=== PATIENT | female | born 1945 | race Caucasian/White ===

== ENCOUNTER 2020-02-25 10:46 | Day surgery (SDC) | payer MEDICARE ==
[~2020-02-25] VITALS: Ht 149.9 cm; Wt 56.7 kg
[2020-02-25] VITALS (18 sets, daily range): BP systolic 103–149; BP diastolic 48–78
[2020-02-25] MEDS ORDERED: normal saline 1000ml 1,000 ML IV SCH (11:15)
[2020-02-25] MEDS ORDERED: CHOL200074 PO (11:50)
[2020-02-25] MEDS ORDERED: INFL100V2 IV (11:50)
[2020-02-25] MEDS ORDERED: [UNRECOGNIZED DRUG - OTHER] PO (11:50)
[2020-02-25] MEDS ORDERED: HYDR12.55 PO (11:50)
[2020-02-25] MEDS ORDERED: OMEG-79 PO (11:50)
[2020-02-25] MEDS ORDERED: ACET-1025 PO (11:50)
[2020-02-25] MEDS ORDERED: FLAX100032 PO (11:50)
[2020-02-25] MEDS ORDERED: MULT-227 PO (11:50)
[2020-02-25] MEDS ORDERED: LEVO25TA2 PO (11:50)
[2020-02-25] MEDS ORDERED: LOSA25TA96 PO (11:50)
[2020-02-25] MEDS ORDERED: CRAN450T4 PO (11:50)
[2020-02-25] MEDS ORDERED: OMEP20TA23 PO (11:50)
[2020-02-25] MEDS ORDERED: RED YEAST RICE/COQ10 PO (11:50)
[2020-02-25] MEDS ORDERED: PSYL0.4C2 PO (11:50)
[2020-02-25] MEDS ORDERED: HYDR200T84 PO (11:50)
[2020-02-25] MEDS ORDERED: CALC-522 PO (11:50)
[2020-02-25] MEDS ORDERED: AMLO10TA48 PO (11:50)
[2020-02-25] MEDS ORDERED: LACT1CAP65 PO (11:50)
[2020-02-25] MEDS ORDERED: ARA20T PO (11:50)
[2020-02-25 11:56] LABS: BASOPHILS # (AUTO) 0.1 X10'3 (0-0.2); BASOPHILS % (AUTO) 1.6 % (0-1); EOSINOPHILS # (AUTO) 0.6 X10'3 (0-0.9); EOSINOPHILS % (AUTO) 12.8 % (0-6); HEMOGLOBIN 10.6 g/dl (12.0-16.0); LYMPHOCYTES # (AUTO) 1.1 X10'3 (1.1-4.8); LYMPHOCYTES % (AUTO) 25.5 % (21-51); MEAN CORPUSCULAR HEMOGLOBIN 30.3 PG (27.0-31.0); MEAN CORPUSCULAR HGB CONC 32.3 g/dL (33.0-36.5); MEAN CORPUSCULAR VOLUME 93.6 FL (78-98); MEAN PLATELET VOLUME 6.9 FL (7.4-10.4); MONOCYTES # (AUTO) 0.4 X10'3 (0-0.9); MONOCYTES % (AUTO) 8.4 % (2-12); NEUTROPHILS # (AUTO) 2.3 X10'3 (1.8-7.7); NEUTROPHILS % (AUTO) 51.7 % (42-75); PLATELET COUNT 227 X10'3 (140-440); RED BLOOD COUNT 3.52 X10'6 (4.20-5.60); RED CELL DISTRIBUTION WIDTH 14.8 % (11.5-14.5); WHITE BLOOD COUNT 4.4 X10'3 (4.5-11.0)
[2020-02-25] MEDS ORDERED: gelatin sponge, absorbable (Gelfoam 12-7MM) sponge TP ONE (12:46)
[2020-02-25] MEDS ORDERED: fentaNYL/PF 50MCG/1 ML 2ML syringe ONE (12:59)
[2020-02-25] MEDS ORDERED: midazolam 2 mg/2 ml injection ONE (12:59)
[2020-02-25] MEDS ORDERED: HYDROcodone/acetaminophen 5mg/325mg tablet PO PRN (13:40)
== END 2020-02-25 17:30 | disposition home or self-care (01) ==
LOC: SSTAY O 10:46
PROVIDERS: ATTEND Radiology Vascular & Interventional Radiology
DX: I12.9 Hypertensive chronic kidney disease with stage 1 through stage 4 chronic kidney disease, or unspecified chronic kidney disease (principal); N18.2 Chronic kidney disease, stage 2 (mild); M06.9 Rheumatoid arthritis, unspecified; D63.1 Anemia in chronic kidney disease; Z20.828 Contact with and (suspected) exposure to other viral communicable diseases; Z88.2 Allergy status to sulfonamides; Z79.899 Other long term (current) drug therapy; Z98.41 Cataract extraction status, right eye; Z98.42 Cataract extraction status, left eye; Z90.710 Acquired absence of both cervix and uterus; Z98.890 Other specified postprocedural states; Z87.891 Personal history of nicotine dependence; Z72.89 Other problems related to lifestyle; Z82.49 Family history of ischemic heart disease and other diseases of the circulatory system
CPT/HCPCS: 36415; 50200; 77012; 85025; 87635; 99152; 99153; J2250; J3010; J7030; 88300; 88346; 88350

== ENCOUNTER 2020-03-29 07:04 | Inpatient (IN) | payer MEDICARE ==
[2020-03-22 12:40] LABS: BASOPHILS # (AUTO) 0.1 X10'3 (0-0.2); EOSINOPHILS # (AUTO) 0.4 X10'3 (0-0.9); LYMPHOCYTES # (AUTO) 0.9 X10'3 (1.1-4.8); MONOCYTES # (AUTO) 0.5 X10'3 (0-0.9); PRE OP PLATELET COUNT 215 X10'3 (140-440)
[2020-03-22 12:42] LABS: EOSINOPHILS % (AUTO) 7.3 % (0-6); LYMPHOCYTES % (AUTO) 16.7 % (21-51); MEAN CORPUSCULAR HEMOGLOBIN 31.8 PG (27.0-31.0); MEAN CORPUSCULAR HGB CONC 33.1 g/dL (33.0-36.5); MEAN CORPUSCULAR VOLUME 96.1 FL (78-98); MEAN PLATELET VOLUME 6.6 FL (7.4-10.4); MONOCYTES % (AUTO) 8.6 % (2-12); NEUTROPHILS # (AUTO) 3.5 X10'3 (1.8-7.7); NEUTROPHILS % (AUTO) 64.8 % (42-75); PRE OP HEMATOCRIT 28.5 % (35.0-45.0); RED BLOOD COUNT 2.96 X10'6 (4.20-5.60); RED CELL DISTRIBUTION WIDTH 13.9 % (11.5-14.5)
[2020-03-22 12:55] LABS: BASOPHILS % (AUTO) 2.2 % (0-1); PRE OP HEMOGLOBIN 9.4 g/dL (12.0-16.0)
[2020-03-22 13:03] LABS: ALKALINE PHOSPHATASE 66 IU/L (46-116); BLOOD UREA NITROGEN 42 MG/DL (7-18); BUN/CREATININE RATIO 32.6 (6.6-38.0); CALCIUM 9.1 MG/DL (8.5-10.1); CHLORIDE 98 MMOL/L (99-107); CREATININE 1.29 MG/DL (0.40-0.90); PRE OP ALT 19 U/L (30-65); PRE OP ANION GAP 11 (8-16); PRE OP AST 25 U/L (10-37); PRE OP BILIRUB, TOTAL 0.4 MG/DL (0.0-1.0); PRE OP GLUCOSE 87 MG/DL (70-104); PRE OP POTASSIUM 4.6 MMOL/L (3.4-5.1); PRE OP SODIUM 134 MMOL/L (135-145); TOTAL CARBON DIOXIDE 25.2 MMOL/L (24-32); TOTAL PROTEIN 8.1 G/DL (6.4-8.2); eGFR 40 ML/MIN
[2020-03-29] VITALS (19 sets, daily range): BP systolic 103–149; BP diastolic 54–177
[~2020-03-29] VITALS: Ht 149.9 cm; Wt 55.8 kg
[~2020-03-29 07:04] MED LIST: AMLO10TA48 PO; ARA20T PO; CALC-891 PO; CHOL200074 PO; FLAX100032 PO; HYDR12.55 PO; HYDR200T84 PO; INFL100V2 IV; LEVO25TA2 PO; LOSA25TA96 PO; MULT-227 PO; NORMAL SALINE IV ONE; OMEG-79 PO; PSYL0.4C2 PO; TRANEXAMIC ACID IV ONE; VANCOMYCIN INJ 1000 MG in NORMAL SALINE 250ml IV.SOLN IV ONE; albuterol 2.5 MG/3 ML nebule NEB ONE; ceFAZolin 2gm in dextrose, iso 50 ML IV ONE; ringers solution, lacted 1,000 ML IV SCH
[2020-03-29] MEDS ORDERED: LIDOcaine 1% (10mg/ml) 2ml vial ONE (07:40)
[2020-03-29] MEDS ORDERED: sevoflurane 250ml liquid IH ONE (09:51)
[2020-03-29] MEDS ORDERED: ROPIVAcaine 0.5% (5mg/ml) 30ml vial ONE ×2 (09:57→10:00)
[2020-03-29] MEDS ORDERED: fentaNYL/PF 50MCG/1 ML 2ML syringe ONE (09:57)
[2020-03-29] MEDS ORDERED: MIDAZolam 5mg/5ml vial ONE (09:58)
[2020-03-29] MEDS ORDERED: propofol inj 20 ML IV ONE (10:00)
[2020-03-29] MEDS ORDERED: ePHEDrine 50MG/ML INJ. ONE (10:29)
[2020-03-29] MEDS ORDERED: ROPIVAcaine 0.2%/PF PUMP/bolus 550 ML INTERSCALE SCH (11:15)
[2020-03-29] MEDS ORDERED: ROPIVAcaine 0.2% (10 MG/5 ML) BOLUS INJECTION INTERSCALE PRN (11:15)
[2020-03-29] MEDS ORDERED: morphine 2 MG/ML inj. syringe IV PRN (11:15)
[2020-03-29] MEDS ORDERED: morphine 4 MG/ML inj SYRINge IV PRN (11:15)
[2020-03-29] MEDS ORDERED: meperidine/PF 25mg/ml syringe IV PRN ×3 (11:15)
[2020-03-29] MEDS ORDERED: proCHLORperazine 10 MG/2 ml inj IV PRN (11:15)
[2020-03-29] MEDS ORDERED: ondansetron/PF 4mg/2ml inj IV PRN ×2 (11:15→11:55)
[2020-03-29] MEDS ORDERED: ringers solution, lacted 1,000 ML IV SCH (11:15)
--- NOTE | 2020-03-29 11:44 | NUR ---
from or on ortho bed. no resp distress, skin warm and dry. vss. iv patent. not moving rt arm (has pain catheter). fingers warm with brisk cap refill. denying any discomfort at this time.dr cherry at side.
[2020-03-29] MEDS ORDERED: acetaminophen 325mg tablet PO PRN (11:55)
[2020-03-29] MEDS ORDERED: HYDROmorphone 1 mg/ml syringe IV PRN (11:55)
[2020-03-29] MEDS ORDERED: HYDROmorphone inj. 0.5 MG/0.5 ML DISP.SYRIN IV PRN (11:55)
[2020-03-29] MEDS ORDERED: magnesium hydroxide 30ml (MOM) UD suspension PO PRN (11:55)
[2020-03-29] MEDS ORDERED: bisacodyl 10mg suppository rectal RC PRN (11:55)
[2020-03-29] MEDS ORDERED: oxyCODONE IR 5mg (immed. release) tablet PO PRN ×2 (11:55)
[2020-03-29] MEDS ORDERED: diphenhydrAMINE 25mg capsule PO PRN ×2 (11:55)
--- NOTE | 2020-03-29 12:54 | NUR ---
to room after report called. pt continues to do very well. no pain, tolerating ice chips. vss, iv patent. doing deep breathing exercises. dsg rt shoulder cdi. transported on bed without event.
[2020-03-29] MEDS ORDERED: NORMAL SALINE IV ONE (15:00)
[2020-03-29] MEDS ORDERED: TRANEXAMIC ACID IV ONE (15:00)
[2020-03-29] MEDS: acetaminophen 325mg tablet PO SCH ×2 (16:13→20:22)
[2020-03-29] MEDS: ceFAZolin/D5W- 1GM premix 50 ML IV SCH ×2 (16:13→23:41)
[2020-03-29] MEDS: potassium cl 20mEq in 1/2 NS 1,000 ML IV SCH ×2 (16:54→19:55)
[2020-03-29] MEDS ORDERED: vancomycin/NS 1 GM ADD-VANTAGE 250 ML IV SCH (20:00)
[2020-03-29] MEDS: calcium carbonate/vitamin D3 tablet PO SCH (20:22)
[2020-03-29] MEDS ORDERED: sennosides 8.6mg tablet PO SCH (21:00)
[2020-03-30 02:00] VITALS: BP 140/45
[2020-03-30] MEDS: acetaminophen 325mg tablet PO SCH ×2 (02:31→07:37)
[2020-03-30] MEDS: potassium cl 20mEq in 1/2 NS 1,000 ML IV SCH ×2 (04:19→11:55)
[2020-03-30 06:00] VITALS: BP 130/60
--- NOTE | 2020-03-30 06:10 | NUR ---
Patient in room ORTHO 4017. I have received report from Ernestine and had the opportunity to ask questions and assume patient care.
--- NOTE | 2020-03-30 06:32 | NUR ---
Problems reprioritized. Patient report given, questions answered & plan of care reviewed with GLORIA Walter.
[2020-03-30 06:55] LABS: BASOPHILS % (AUTO) 0.3 % (0-1); EOSINOPHILS % (AUTO) 0.2 % (0-6); HEMOGLOBIN 7.4 g/dl (12.0-16.0); LYMPHOCYTES # (AUTO) 0.6 X10'3 (1.1-4.8); LYMPHOCYTES % (AUTO) 6.1 % (21-51); MEAN CORPUSCULAR HGB CONC 33.8 g/dL (33.0-36.5); MEAN CORPUSCULAR VOLUME 94.9 FL (78-98); MEAN PLATELET VOLUME 6.6 FL (7.4-10.4); MONOCYTES # (AUTO) 0.8 X10'3 (0-0.9); MONOCYTES % (AUTO) 8.7 % (2-12); NEUTROPHILS # (AUTO) 8.1 X10'3 (1.8-7.7); NEUTROPHILS % (AUTO) 84.7 % (42-75); PLATELET COUNT 195 X10'3 (140-440); RED BLOOD COUNT 2.32 X10'6 (4.20-5.60); RED CELL DISTRIBUTION WIDTH 13.2 % (11.5-14.5); WHITE BLOOD COUNT 9.5 X10'3 (4.5-11.0)
[2020-03-30 07:16] LABS: ANION GAP 10 (8-16); CHLORIDE 100 MMOL/L (99-107); POTASSIUM 5.2 MMOL/L (3.5-5.1); SODIUM 132 MMOL/L (135-145); TOTAL CARBON DIOXIDE 21.7 MMOL/L (24-32)
[2020-03-30] MEDS: calcium carbonate/vitamin D3 tablet PO SCH (07:36)
[2020-03-30] MEDS ORDERED: hydroxychloroquine 200mg tablet PO SCH (08:00)
[2020-03-30] MEDS ORDERED: HYDROchlorothiazide 12.5mg capsule PO SCH ×2 (08:00→08:46)
[2020-03-30] MEDS ORDERED: losartan 25mg tablet PO SCH (08:00)
[2020-03-30] MEDS ORDERED: amLODIPine 5mg tablet PO SCH (08:00)
[2020-03-30] MEDS ORDERED: vitamin D (cholecalciferol) 1,000 unit tablet PO SCH (08:00)
[2020-03-30] MEDS ORDERED: levoTHYROXINE 25mcg tablet PO SCH (08:00)
[2020-03-30] MEDS ORDERED: leflunomide 20mg tablet PO SCH (08:00)
[2020-03-30] MEDS ORDERED: aspirin 325mg tablet PO SCH (08:30)
[2020-03-30 10:00] VITALS: BP 126/59
[2020-03-30] MEDS ORDERED: ASPI-1 PO (11:47)
--- NOTE | 2020-03-30 12:50 | NUR ---
Reviewed discharge instructions with pt. Pt verbalized understanding. Pt was dressed, all belongings were returned to pt. pt was wheeled downstairs to be driven home by her spouse. Pt is alert, oriented and does not have c/o pain at this time.
[2020-03-31] MEDS ORDERED: acetaminophen 325mg tablet PO PRN (11:55)
== END 2020-03-30 12:57 | disposition home or self-care (01) | DRG 483 ==
LOC: UNDOADMIN 07:04 → PAS IN 07:04 → EDSTATUS 10:00 → PAS IN 11:54 → ORTHO 4S 12:50
PROVIDERS: ADMIT Orthopaedic Surgery; ATTEND Orthopaedic Surgery
PROC: 0LS30ZZ Reposition Right Upper Arm Tendon, Open Approach (ICD-10-PCS; 2020-03-29)
PROC: 3E0T3BZ Introduction of Anesthetic Agent into Peripheral Nerves and Plexi, Percutaneous Approach (ICD-10-PCS; 2020-03-29)
PROC: 0RRJ00Z Replacement of Right Shoulder Joint with Reverse Ball and Socket Synthetic Substitute, Open Approach (ICD-10-PCS; principal; 2020-03-29 09:51)
DX: M19.011 Primary osteoarthritis, right shoulder (principal); M75.121 Complete rotator cuff tear or rupture of right shoulder, not specified as traumatic; E03.9 Hypothyroidism, unspecified; I10 Essential (primary) hypertension; Z20.828 Contact with and (suspected) exposure to other viral communicable diseases; D50.0 Iron deficiency anemia secondary to blood loss (chronic)
CPT/HCPCS: 36415; 80051; 80053; 82948; 84443; 85025; 87070; 87075; 87081; 87635; 97110; 97116; 97162; 97530; A4618; A7000; C1713; C1776; G0378; J0690; J2001; J2250; J2704; J2795; J3010; J3370; J3480; J7120

== ENCOUNTER 2021-08-07 09:29 | Inpatient (IN) | payer MEDICARE ==
[2021-08-01 10:57] LABS: BASOPHILS # (AUTO) 0.1 X10'3 (0-0.2); BASOPHILS % (AUTO) 1.8 % (0-1); EOSINOPHILS # (AUTO) 0.4 X10'3 (0-0.9); EOSINOPHILS % (AUTO) 7.4 % (0-6); LYMPHOCYTES # (AUTO) 0.7 X10'3 (1.1-4.8); LYMPHOCYTES % (AUTO) 14.3 % (21-51); MEAN CORPUSCULAR HEMOGLOBIN 31.8 PG (27.0-31.0); MEAN CORPUSCULAR HGB CONC 33.4 g/dL (33.0-36.5); MEAN CORPUSCULAR VOLUME 95.1 FL (78-98); MEAN PLATELET VOLUME 5.9 FL (7.4-10.4); MONOCYTES # (AUTO) 0.5 X10'3 (0-0.9); MONOCYTES % (AUTO) 10.4 % (2-12); NEUTROPHILS # (AUTO) 3.2 X10'3 (1.8-7.7); NEUTROPHILS % (AUTO) 66.1 % (42-75); PRE OP HEMATOCRIT 29.1 % (35.0-45.0); PRE OP PLATELET COUNT 267 X10'3 (140-440); RED BLOOD COUNT 3.06 X10'6 (4.20-5.60); RED CELL DISTRIBUTION WIDTH 14.6 % (11.5-14.5)
[2021-08-01 11:00] LABS: PRE OP HEMOGLOBIN 9.7 g/dL (12.0-16.0)
[2021-08-01 11:08] LABS: PRE OP PROTIME 10.1 SECONDS (9.0-12.0)
[2021-08-01 11:19] LABS: ALBUMIN 3.8 G/DL (3.4-5.0); ALBUMIN/GLOBULIN RATIO 0.9 (1.1-1.5); ALKALINE PHOSPHATASE 62 IU/L (46-116); BLOOD UREA NITROGEN 37 MG/DL (7-18); BUN/CREATININE RATIO 31.1 (6.6-38.0); CALCIUM 8.8 MG/DL (8.5-10.1); CHLORIDE 101 MMOL/L (99-107); CREATININE 1.19 MG/DL (0.40-0.90); PRE OP ALT 17 U/L (30-65); PRE OP ANION GAP 10 (8-16); PRE OP AST 21 U/L (10-37); PRE OP BILIRUB, TOTAL 0.3 MG/DL (0.0-1.0); PRE OP GLUCOSE 101 MG/DL (70-104); PRE OP POTASSIUM 4.2 MMOL/L (3.4-5.1); PRE OP SODIUM 136 MMOL/L (135-145); TOTAL CARBON DIOXIDE 25.1 MMOL/L (24-32); TOTAL PROTEIN 7.9 G/DL (6.4-8.2); eGFR 44 ML/MIN
[~2021-08-07] VITALS: Ht 149.9 cm; Wt 52.7 kg
[2021-08-07] VITALS (20 sets, daily range): BP systolic 112–170; BP diastolic 61–84
[~2021-08-07 09:29] MED LIST changes: +ACET-1025 PO; +AMLO10TA13 PO; -AMLO10TA48 PO; +BIOT5000 PO; +CHLO4TAB36 PO; +CHOL20004 PO; -CHOL200074 PO; +CRAN450T4 PO; +FAMO20TA47 PO; +GLUC-193 PO; -INFL100V2 IV; -LOSA25TA96 PO; +LOSA50TA64 PO; -MULT-227 PO; -NORMAL SALINE IV ONE; +RED600TA PO; +REM100I IV; -TRANEXAMIC ACID IV ONE; +UBID100C16 PO; -VANCOMYCIN INJ 1000 MG in NORMAL SALINE 250ml IV.SOLN IV ONE; -albuterol 2.5 MG/3 ML nebule NEB ONE; -ceFAZolin 2gm in dextrose, iso 50 ML IV ONE; +cefazolin/dext.iso 2gm/50ml IV ONE; +famotidine 20mg tablet PO ONE; +tranexamic acid 650mg tablet PO ONE; +vancomycin/NS 1 GM in NS 250 ML IV ONE
--- NOTE | 2021-08-07 11:13 | NUR ---
PT PREPPED FOR SURGERY, BILATERAL ARMS ARE PINK WARM AND DRY, CAPILLARY REFILL IS GREAT IN BOTH ARMS, RADIAL PULSES IN BOTH SIDES ARE PALPABLE. SENSATION INTACT IN BOTH ARMS. PT TO HAVE SURGERY ON HER LEFT SHOULDER TODAY. PREVIOUS SURGERY ON RIGHT WITH GOOD RESULTS. Addendum: 08/07/21 at 1115 by Vicki Craig RN Amended: Links added.
[2021-08-07] MEDS ORDERED: ROPIVAcaine 0.5% (5mg/ml) 30ml vial ONE ×2 (11:45→12:31)
[2021-08-07] MEDS ORDERED: ketorolac trometh. 30mg/ml inj. ONE (11:45)
[2021-08-07] MEDS ORDERED: FENTANYL CITRATE/PF 50 MCG/1 ML VIAL ONE ×2 (12:31→14:13)
[2021-08-07] MEDS ORDERED: midazolam 1 mg/ML 2ml injection ONE (12:32)
[2021-08-07] MEDS ORDERED: propofol inj 20 ML IV ONE (12:33)
[2021-08-07] MEDS ORDERED: sevoflurane 250ml liquid IH ONE (12:34)
[2021-08-07] MEDS ORDERED: ROPIVAcaine 0.2%/PF PUMP/bolus 545 ML INTERSCALE SCH (13:10)
[2021-08-07] MEDS ORDERED: HYDROmorphone/PF 0.2 MG/ML SYRINGE IV PRN (13:10)
[2021-08-07] MEDS ORDERED: ondansetron/PF 4mg/2ml inj IV PRN ×2 (13:10→14:40)
[2021-08-07] MEDS ORDERED: ringers solution, lacted 1,000 ML IV SCH (13:10)
[2021-08-07] MEDS ORDERED: ROPIVAcaine 0.2% (10 MG/5 ML) BOLUS INJECTION INTERSCALE PRN (13:10)
[2021-08-07] MEDS ORDERED: morphine 2 MG/ML inj. syringe IV PRN (13:10)
[2021-08-07] MEDS ORDERED: ondansetron/PF 4mg/2ml inj ONE (13:17)
[2021-08-07] MEDS ORDERED: dexamethasone sod phosphate 4mg/ml inj. ONE (13:17)
--- NOTE | 2021-08-07 14:23 | NUR ---
Received from OR via BED, accompanied by Anesthesiologist DR. AGOSTO and report given by Anesthesiolgist AND OR NURSE. PT ARRIVED MARLENY ON 10 L OF 02 VIA MASK. LEFT SHOULDER DRESSING C/D/I WITH POWDER PACK AND SLING/IMMOBILIZER IN PLACE. 20G IV TO RIGHT ARM. PT DENIES PAIN OR NAUSEA. ONQ CATHETER IN PLACE AND READY TO BE ACCESSED. VSS. PT PULSES STRONG AND EQUAL. PT STILL HAS NUMBNESS IN LEFT HAND FROM BLOCK WITH LITTLE TO NO STENGTH. CAP REFILL IS WNL. WILL CONTINUE TO MONITOR. Addendum: 08/07/21 at 1503 by Mireille Prado RN Amended: Links added.
[2021-08-07] MEDS ORDERED: non-formulary drug (Acetaminophen (Tylenol Extra Strength) 1 TAB) PO PRN (14:40)
[2021-08-07] MEDS ORDERED: magnesium hydroxide 30ml (MOM) UD suspension PO PRN (14:40)
[2021-08-07] MEDS ORDERED: famotidine 20mg tablet PO PRN (14:40)
[2021-08-07] MEDS ORDERED: acetaminophen 325mg tablet PO PRN (14:40)
[2021-08-07] MEDS ORDERED: oxyCODONE IR 5mg (immed. release) tablet PO PRN ×2 (14:40)
[2021-08-07] MEDS ORDERED: naloxone 0.4 mg/ml inj IV PRN (14:40)
[2021-08-07] MEDS ORDERED: INFLIXIMAB 100 MG IV SCH (14:40)
[2021-08-07] MEDS ORDERED: chlorpheniramine 4mg tablet PO PRN (14:40)
[2021-08-07] MEDS ORDERED: diphenhydrAMINE 25mg capsule PO PRN ×2 (14:40)
[2021-08-07] MEDS ORDERED: HYDROmorphone inj. 0.5 MG/0.5 ML DISP.SYRIN IV PRN (14:40)
[2021-08-07] MEDS ORDERED: bisacodyl 10mg suppository rectal RC PRN (14:40)
[2021-08-07] MEDS ORDERED: HYDROmorphone 1 mg/ml syringe IV PRN (14:40)
[2021-08-07 14:50] LABS: ISTAT CREATININE 1.1 mg/dL (0.6-1.1); ISTAT HGB 9.2 g/dl (12.0-16.0); ISTAT IONIZED CALCIUM 1.08 mmol/L (1.03-1.32); ISTAT K 4.6 mmol/L (3.5-5.1); POC BUN/CREATININE RATIO 32.7 (6.6-38.0)
--- NOTE | 2021-08-07 15:43 | NUR ---
Report called to receiving nurse GLORIA MOERNO. Transferred via BED WITH ALL PERSONAL BelongingS. Special Issues communicated to receiving nurse. ONQ AND IS TEACHING PROVIDED TO PT. VSS. LEFT SHOULDER DRESSING C/D/I. PT DENIES PAIN AND NAUSEA. SHE STILL DOES NOT HAVE SENSATION OR MOVEMENT IN LEFT HAND BUT PULSES ARE STRONG. PT TRANSPORTED TO ROOM WHERE PRIMARY NURSE ASSUMED CARE. BED LOCKED AND IN LOW POSITION. CALL LIGHT IN REACH. Addendum: 08/07/21 at 1552 by Mireille Prado RN Amended: Links added.
[2021-08-07] MEDS: potassium cl 20mEq in 1/2 NS 1,000 ML IV SCH ×2 (17:50→22:40)
[2021-08-07] MEDS: ceFAZolin/D5W- 1GM premix 50 ML IV SCH (17:50)
--- NOTE | 2021-08-07 18:05 | NUR ---
Problems reprioritized. Patient report given, questions answered & plan of care reviewed with Madonna CASTRO.
[2021-08-07] MEDS ORDERED: MSM PO SCH (20:00)
[2021-08-07] MEDS ORDERED: [UNRECOGNIZED DRUG - OTHER] PO SCH (20:00)
[2021-08-07] MEDS ORDERED: CHONDROITIN A PO SCH (20:00)
[2021-08-07] MEDS ORDERED: vancomycin/NS 1 GM ADD-VANTAGE 250 ML IV SCH (20:00)
[2021-08-07] MEDS ORDERED: GLUCOSAMINE PO SCH (20:00)
[2021-08-07] MEDS: calcium carbonate/vitamin D3 tablet PO SCH (20:01)
[2021-08-07] MEDS: acetaminophen 325mg tablet PO SCH (20:01)
[2021-08-07] MEDS ORDERED: PSYLLIUM HUSK 0.4 GM PO SCH (21:00)
[2021-08-07] MEDS ORDERED: sennosides 8.6mg tablet PO SCH (21:00)
[2021-08-07] MEDS ORDERED: levoTHYROXINE 25mcg tablet PO SCH (21:00)
[2021-08-08] MEDS: ceFAZolin/D5W- 1GM premix 50 ML IV SCH (00:02)
[2021-08-08 02:00] VITALS: BP 119/64
[2021-08-08] MEDS: acetaminophen 325mg tablet PO SCH ×2 (02:28→08:16)
[2021-08-08 06:00] VITALS: BP 122/61
--- NOTE | 2021-08-08 06:30 | NUR ---
Patient in room ORTHO 4023. I have received report from Madonna CASTRO and had the opportunity to ask questions and assume patient care.
--- NOTE | 2021-08-08 06:37 | NUR ---
Problems reprioritized. Patient report given, questions answered & plan of care reviewed with GLORIA MURCIA AND GLORIA DELEON.
[2021-08-08 07:31] LABS: BASOPHILS % (AUTO) 0.4 % (0-1); EOSINOPHILS % (AUTO) 0.3 % (0-6); HEMATOCRIT 23.9 % (35.0-45.0); HEMOGLOBIN 7.8 g/dl (12.0-16.0); LYMPHOCYTES # (AUTO) 0.5 X10'3 (1.1-4.8); LYMPHOCYTES % (AUTO) 7.6 % (21-51); MEAN CORPUSCULAR HEMOGLOBIN 31.3 PG (27.0-31.0); MEAN CORPUSCULAR HGB CONC 32.8 g/dL (33.0-36.5); MEAN CORPUSCULAR VOLUME 95.3 FL (78-98); MEAN PLATELET VOLUME 6.6 FL (7.4-10.4); MONOCYTES # (AUTO) 0.7 X10'3 (0-0.9); MONOCYTES % (AUTO) 11.2 % (2-12); NEUTROPHILS % (AUTO) 80.5 % (42-75); PLATELET COUNT 179 X10'3 (140-440); RED BLOOD COUNT 2.51 X10'6 (4.20-5.60); WHITE BLOOD COUNT 6.3 X10'3 (4.5-11.0)
[2021-08-08 07:40] LABS: ANION GAP 7 (8-16); CHLORIDE 106 MMOL/L (99-107); POTASSIUM 5.1 MMOL/L (3.5-5.1); SODIUM 136 MMOL/L (135-145); TOTAL CARBON DIOXIDE 23.4 MMOL/L (24-32)
[2021-08-08] MEDS ORDERED: losartan 50mg tablet PO SCH (08:00)
[2021-08-08] MEDS ORDERED: HYDROchlorothiazide 12.5mg capsule PO SCH (08:00)
[2021-08-08] MEDS ORDERED: CRANBERRY EXTRACT PO SCH (08:00)
[2021-08-08] MEDS ORDERED: RED YEAST RICE 600 MG PO SCH (08:00)
[2021-08-08] MEDS ORDERED: hydroxychloroquine 200mg tablet PO SCH (08:00)
[2021-08-08] MEDS ORDERED: leflunomide 20mg tablet PO SCH (08:00)
[2021-08-08] MEDS ORDERED: FLAXSEED OIL 1400 MG PO SCH (08:00)
[2021-08-08] MEDS ORDERED: non-formulary drug (Ubidecarenone (Coq-10) 300 MG) PO SCH (08:00)
[2021-08-08] MEDS ORDERED: amLODIPine 5mg tablet PO SCH (08:00)
[2021-08-08] MEDS ORDERED: omega-3 acid ethyl esters 1GM capsule PO SCH (08:00)
[2021-08-08] MEDS: calcium carbonate/vitamin D3 tablet PO SCH (08:15)
[2021-08-08 08:19] VITALS: BP_SYST 104
[2021-08-08] MEDS ORDERED: aspirin 325mg tablet PO SCH (08:30)
[2021-08-08] MEDS ORDERED: OMEGA-3/DHA/EPA/FISH OIL 1 EACH CAPSULE.DR PO SCH (11:45)
--- NOTE | 2021-08-08 13:00 | NUR ---
Discharge instructions reviewed with patient and questions answered. IV removed by Helen CASTRO. Patient wheeled down to lobby by Helen.
--- NOTE | 2021-08-08 13:11 | NUR ---
Pt s/p reverse left TSA, written protein education with RD contact information placed in patient's chart. Pt pending discharge. Will remain available. Addendum: 08/08/21 at [address] Amended: Links added.
--- NOTE | 2021-08-08 13:30 | NUR ---
Wheeled patient out to family via wheelchair.
[2021-08-09] MEDS ORDERED: cholecalciferol (vitamin D3) 1,000 unit (25mcg) tablet PO SCH (08:00)
[2021-08-09] MEDS ORDERED: acetaminophen 325mg tablet PO PRN (14:40)
== END 2021-08-08 13:38 | disposition home or self-care (01) | DRG 483 ==
LOC: PAS IN 09:29 → ORTHO 4S 15:40
PROVIDERS: ADMIT Orthopaedic Surgery; ATTEND Orthopaedic Surgery
PROC: 0LS40ZZ Reposition Left Upper Arm Tendon, Open Approach (ICD-10-PCS; 2021-08-07)
PROC: 3E0T3BZ Introduction of Anesthetic Agent into Peripheral Nerves and Plexi, Percutaneous Approach (ICD-10-PCS; 2021-08-07)
PROC: 0RRK00Z Replacement of Left Shoulder Joint with Reverse Ball and Socket Synthetic Substitute, Open Approach (ICD-10-PCS; principal; 2021-08-07 12:34)
DX: M19.012 Primary osteoarthritis, left shoulder (principal); M75.102 Unspecified rotator cuff tear or rupture of left shoulder, not specified as traumatic; M65.812 Other synovitis and tenosynovitis, left shoulder; Z79.899 Other long term (current) drug therapy
CPT/HCPCS: 36415; 80047; 80051; 80053; 82948; 84443; 85025; 85610; 85730; 87081; 97116; 97161; A4565; A4618; A7000; C1776; G0378; J0690; J1100; J1885; J2250; J2405; J2704; J2795; J3010; J3370; J3480; J7120; U0003; U0005

== ENCOUNTER 2022-06-09 12:35 | Emergency (ER) | payer MEDICARE ==
[~2022-06-09] VITALS: Ht 147.3 cm; Wt 52.3 kg
[~2022-06-09 12:35] MED LIST changes: -cefazolin/dext.iso 2gm/50ml IV ONE; -famotidine 20mg tablet PO ONE; -ringers solution, lacted 1,000 ML IV SCH; -tranexamic acid 650mg tablet PO ONE; -vancomycin/NS 1 GM in NS 250 ML IV ONE
[2022-06-09 13:15] LABS: BASOPHILS % (AUTO) 0.5 % (0-1); EOSINOPHILS # (AUTO) 0.1 X10'3 (0-0.9); EOSINOPHILS % (AUTO) 2.4 % (0-6); HEMOGLOBIN 8.8 g/dl (12.0-16.0); LYMPHOCYTES # (AUTO) 0.5 X10'3 (1.1-4.8); LYMPHOCYTES % (AUTO) 8.5 % (21-51); MEAN CORPUSCULAR HEMOGLOBIN 30.2 PG (27.0-31.0); MEAN CORPUSCULAR HGB CONC 32.7 g/dL (33.0-36.5); MEAN CORPUSCULAR VOLUME 92.4 FL (78-98); MEAN PLATELET VOLUME 6.6 FL (7.4-10.4); MONOCYTES # (AUTO) 0.5 X10'3 (0-0.9); NEUTROPHILS # (AUTO) 4.9 X10'3 (1.8-7.7); NEUTROPHILS % (AUTO) 80.6 % (42-75); PLATELET COUNT 191 X10'3 (140-440); RED BLOOD COUNT 2.93 X10'6 (4.20-5.60); WHITE BLOOD COUNT 6.1 X10'3 (4.5-11.0)
[2022-06-09 13:29] LABS: ALBUMIN 3.7 G/DL (3.4-5.0); ANION GAP 9 (8-16); BILIRUBIN,TOTAL 0.3 MG/DL (0.1-1.0); BLOOD UREA NITROGEN 36 MG/DL (7-18); BUN/CREATININE RATIO 28.8 (6.6-38.0); CALCIUM 9.2 MG/DL (8.5-10.1); CHLORIDE 92 MMOL/L (99-107); CREATININE 1.25 MG/DL (0.40-0.90); GLUCOSE 100 MG/DL (70-104); POTASSIUM 4.8 MMOL/L (3.5-5.1); SODIUM 126 MMOL/L (135-145); TOTAL PROTEIN 7.9 G/DL (6.4-8.2); eGFR 42 ML/MIN
[2022-06-09 13:30] LABS: ALANINE AMINOTRANSFERASE 23 U/L (12-78); ALBUMIN/GLOBULIN RATIO 0.9 (1.1-1.5); ALKALINE PHOSPHATASE 73 IU/L (46-116); ASPARTATE AMINO TRANSFERASE 28 U/L (10-37)
[2022-06-09 13:33] VITALS: BP 125/63
[2022-06-09] MEDS ORDERED: pantoprazole 40mg Tablet.DR PO SCH (15:15)
[2022-06-09] MEDS ORDERED: sodium chloride 1gm tablet PO ONE (15:15)
[2022-06-09] MEDS ORDERED: sodium chloride 1gm tablet PO SCH (15:15)
[2022-06-09] MEDS ORDERED: pantoprazole 40mg Tablet.DR PO ONE (15:20)
[2022-06-09] MEDS ORDERED: SODI1TAB2 CORPAK (15:55)
[2022-06-09] MEDS ORDERED: PANT20TA18 PO (15:55)
[2022-06-09 16:05] LABS: OCCULT BLOOD STOOL POSITIVE (Neg)
== END 2022-06-09 16:33 | disposition home or self-care (01) ==
LOC: ER 12:37
DX: D64.9 Anemia, unspecified (principal); E87.1 Hypo-osmolality and hyponatremia; R79.9 Abnormal finding of blood chemistry, unspecified; Z88.2 Allergy status to sulfonamides; Z88.8 Allergy status to other drugs, medicaments and biological substances
CPT/HCPCS: 36415; 80053; 82272; 85025; 99283

== ENCOUNTER 2022-07-04 12:43 | Emergency (ER) | payer MEDICARE ==
[~2022-07-04] VITALS: Ht 147.3 cm; Wt 52.3 kg
[~2022-07-04 12:43] MED LIST changes: +PANT20TA18 PO; +SODI1TAB2 CORPAK
[2022-07-04 12:57] VITALS: BP 142/57
== END 2022-07-04 18:14 | disposition home or self-care (01) ==
LOC: ER 12:45
DX: U07.1 COVID-19 (principal); R05.9 Cough, unspecified; Z88.2 Allergy status to sulfonamides; Z88.8 Allergy status to other drugs, medicaments and biological substances; Z79.899 Other long term (current) drug therapy; Z79.1 Long term (current) use of non-steroidal anti-inflammatories (NSAID); Z79.2 Long term (current) use of antibiotics
CPT/HCPCS: 71046; 99283

== ENCOUNTER 2023-07-15 05:59 | Inpatient (IN) | payer MEDICARE ==
[2023-07-09 12:17] LABS: BASOPHILS # (AUTO) 0.1 X10'3 (0-0.2); BASOPHILS % (AUTO) 1.5 % (0-1); EOSINOPHILS # (AUTO) 0.3 X10'3 (0-0.9); LYMPHOCYTES # (AUTO) 0.7 X10'3 (1.1-4.8); LYMPHOCYTES % (AUTO) 11.8 % (21-51); MEAN CORPUSCULAR HGB CONC 32.2 g/dL (33.0-36.5); MEAN CORPUSCULAR VOLUME 93.3 FL (78-98); MEAN PLATELET VOLUME 6.9 FL (7.4-10.4); MONOCYTES # (AUTO) 0.5 X10'3 (0-0.9); MONOCYTES % (AUTO) 8.5 % (2-12); NEUTROPHILS # (AUTO) 4.2 X10'3 (1.8-7.7); NEUTROPHILS % (AUTO) 73.2 % (42-75); PRE OP HEMATOCRIT 30.9 % (35.0-45.0); PRE OP PLATELET COUNT 207 X10'3 (140-440); PRE OP WHITE BLOOD COUNT 5.8 10'3 (4.8-10.8); RED BLOOD COUNT 3.31 X10'6 (4.20-5.60); RED CELL DISTRIBUTION WIDTH 14.9 % (11.5-14.5)
[2023-07-09 12:20] LABS: PRE OP HEMOGLOBIN 9.9 g/dL (12.0-16.0)
[2023-07-09 12:27] LABS: ALBUMIN 3.6 G/DL (3.4-5.0); ALBUMIN/GLOBULIN RATIO 0.9 (1.1-1.5); ALKALINE PHOSPHATASE 80 IU/L (46-116); BLOOD UREA NITROGEN 41 MG/DL (7-18); BUN/CREATININE RATIO 25.6 (10.0-20.0); CALCIUM 8.5 MG/DL (8.5-10.1); CHLORIDE 102 MMOL/L (99-107); PRE OP ALT 13 U/L (30-65); PRE OP ANION GAP 6 (8-16); PRE OP AST 24 U/L (10-37); PRE OP BILIRUB, TOTAL 0.3 MG/DL (0.0-1.0); PRE OP GLUCOSE 97 MG/DL (70-104); PRE OP POTASSIUM 4.9 MMOL/L (3.4-5.1); PRE OP SODIUM 134 MMOL/L (135-145); TOTAL CARBON DIOXIDE 25.6 MMOL/L (24-32); TOTAL PROTEIN 7.8 G/DL (6.4-8.2); eGFR 31 ML/MIN
[~2023-07-15] VITALS: Ht 147.3 cm; Wt 53.0 kg
[2023-07-15] VITALS (23 sets, daily range): BP systolic 102–163; BP diastolic 53–89; PULSE 52–75; RESP 13–16; TEMP 96.5–98.1; O2SAT 94–100
[2023-07-15] MEDS: cefazolin 2gm/D5W 100mL 100 ML IV ONE (05:30)
[~2023-07-15 05:59] MED LIST changes: +CALC500T33 PO; +EPOE200015 IM; -FAMO20TA47 PO; -HYDR200T84 PO; +LACT1CAP65 PO; -PANT20TA18 PO; -SODI1TAB2 CORPAK
[2023-07-15] MEDS ORDERED: ROPIVAcaine 0.5% (5mg/ml) 30ml vial ONE ×2 (06:52→09:46)
[2023-07-15 07:30] LABS: ISTAT CREATININE 1.4 mg/dL (0.6-1.1); ISTAT HGB 10.5 g/dl (12.0-16.0); ISTAT IONIZED CALCIUM 1.09 mmol/L (1.03-1.32); ISTAT K 4.5 mmol/L (3.5-5.1); POC BUN/CREATININE RATIO 27.1 (6.6-38.0)
[2023-07-15] MEDS: famotidine 20mg tablet PO ONE (07:44)
[2023-07-15] MEDS: tranexamic acid 650mg tablet PO ONE (07:45)
[2023-07-15] MEDS: ringers solution, lacted 1,000 ML IV SCH (07:45)
[2023-07-15] MEDS: vancomycin/NS 1 GM in NS 250 ML IV ONE (07:51)
[2023-07-15] MEDS ORDERED: cloNIDine hcl/PF 100mcg/ml inj ONE (08:16)
[2023-07-15] MEDS ORDERED: MIDAZolam 1 MG/ML 5ML VIAL ONE (08:18)
[2023-07-15] MEDS ORDERED: fentaNYL/PF 50MCG/1 ML 2ML syringe ONE (08:18)
[2023-07-15] MEDS ORDERED: BUPIVAcaine/dex-water/PF 7.5 mg/ml 2ml ampul ONE (08:19)
[2023-07-15] MEDS: aspirin 325mg tablet PO SCH (08:30)
[2023-07-15] MEDS ORDERED: bisacodyl 10mg suppository rectal RC PRN (08:40)
[2023-07-15] MEDS ORDERED: naloxone 0.4 mg/ml inj IV PRN (08:40)
[2023-07-15] MEDS ORDERED: acetaminophen 325mg tablet PO PRN (08:40)
[2023-07-15] MEDS ORDERED: HYDROmorphone 1 mg/ml syringe IV PRN (08:40)
[2023-07-15] MEDS ORDERED: HYDROmorphone inj. 0.5 MG/0.5 ML DISP.SYRIN IV PRN (08:40)
[2023-07-15] MEDS ORDERED: magnesium hydroxide 30ml (MOM) UD suspension PO PRN (08:40)
[2023-07-15] MEDS ORDERED: oxyCODONE IR 5mg (immed. release) tablet PO PRN (08:40)
[2023-07-15] MEDS ORDERED: ondansetron/PF 4mg/2ml inj IV PRN ×2 (08:40→09:45)
[2023-07-15] MEDS ORDERED: diphenhydrAMINE 25mg capsule PO PRN ×2 (08:40)
[2023-07-15] MEDS ORDERED: calcium carbonate 500mg chew tablet PO PRN (08:45)
[2023-07-15] MEDS ORDERED: chlorpheniramine 4mg tablet PO PRN (08:45)
[2023-07-15] MEDS ORDERED: non-formulary drug (Acetaminophen (Tylenol Extra Strength) 2 TAB) PO PRN (08:45)
[2023-07-15] MEDS: BUPIVACAINE/MELOXICAM 14 ML VIAL IL ONE (09:16)
[2023-07-15] MEDS ORDERED: meperidine/PF 25mg/ml syringe IV PRN ×3 (09:45)
[2023-07-15] MEDS ORDERED: morphine 2 MG/ML inj. syringe IV PRN (09:45)
[2023-07-15] MEDS ORDERED: proCHLORperazine 10 MG/2 ml inj IV PRN (09:45)
[2023-07-15] MEDS ORDERED: morphine 4 MG/ML inj SYRINge IV PRN (09:45)
[2023-07-15] MEDS ORDERED: propofol inj 20 ML IV ONE (09:45)
[2023-07-15] MEDS ORDERED: ringers solution, lacted 1,000 ML IV SCH (09:45)
[2023-07-15] MEDS: potassium cl 20mEq in 1/2 NS 1,000 ML IV SCH (12:36)
[2023-07-15] MEDS: acetaminophen 325mg tablet PO SCH (14:00)
[2023-07-15] MEDS: ceFAZolin/D5W- 1GM premix 50 ML IV SCH (16:58)
[2023-07-15] MEDS: INFLIXIMAB 100 MG IV SCH (18:02)
[2023-07-15] MEDS: vancomycin/NS 1 GM ADD-VANTAGE 250 ML IV SCH (19:47)
[2023-07-15] MEDS: sennosides 8.6mg tablet PO SCH (21:00)
[2023-07-15] MEDS ORDERED: levoTHYROXINE 25mcg tablet PO SCH (21:00)
[2023-07-16] MEDS: oxyCODONE IR 5mg (immed. release) tablet PO PRN (00:24)
[2023-07-16 02:00] VITALS: BP 125/53; PULSE 65; RESP 13; TEMP 98.1; O2SAT 96
[2023-07-16] MEDS: levoTHYROXINE 25mcg tablet PO SCH (05:29)
[2023-07-16 06:00] VITALS: BP 132/58; PULSE 63; RESP 14; TEMP 97.2; O2SAT 97
[2023-07-16 07:24] LABS: BASOPHILS # (AUTO) 0.1 X10'3 (0-0.2); BASOPHILS % (AUTO) 0.9 % (0-1); EOSINOPHILS % (AUTO) 0.3 % (0-6); HEMATOCRIT 26.4 % (35.0-45.0); HEMOGLOBIN 8.6 g/dl (12.0-16.0); LYMPHOCYTES # (AUTO) 0.6 X10'3 (1.1-4.8); LYMPHOCYTES % (AUTO) 5.8 % (21-51); MEAN CORPUSCULAR HEMOGLOBIN 30.4 PG (27.0-31.0); MEAN CORPUSCULAR HGB CONC 32.5 g/dL (33.0-36.5); MEAN CORPUSCULAR VOLUME 93.6 FL (78-98); MEAN PLATELET VOLUME 6.6 FL (7.4-10.4); MONOCYTES # (AUTO) 0.9 X10'3 (0-0.9); MONOCYTES % (AUTO) 9.3 % (2-12); NEUTROPHILS # (AUTO) 8.2 X10'3 (1.8-7.7); NEUTROPHILS % (AUTO) 83.7 % (42-75); PLATELET COUNT 242 X10'3 (140-440); RED BLOOD COUNT 2.82 X10'6 (4.20-5.60); WHITE BLOOD COUNT 9.8 X10'3 (4.5-11.0)
[2023-07-16 07:40] VITALS: RESP 14; O2SAT 97
[2023-07-16 07:43] LABS: ANION GAP 12 (8-16); CHLORIDE 104 MMOL/L (99-107); SODIUM 134 MMOL/L (135-145); TOTAL CARBON DIOXIDE 17.7 MMOL/L (24-32)
[2023-07-16] MEDS: leflunomide 20mg tablet PO SCH (07:53)
[2023-07-16] MEDS ORDERED: non-formulary drug (Ubidecarenone (Coq-10) 300 MG) PO SCH (08:00)
[2023-07-16] MEDS: calcium carbonate/vitamin D3 tablet PO SCH (08:00)
[2023-07-16] MEDS: losartan 50mg tablet PO SCH (08:01)
[2023-07-16] MEDS: cholecalciferol (vitamin D3) 1,000 unit (25mcg) tablet PO SCH (08:01)
[2023-07-16] MEDS: HYDROchlorothiazide 12.5mg capsule PO SCH (08:03)
[2023-07-16] MEDS: amLODIPine 5mg tablet PO SCH (08:03)
[2023-07-16 10:00] VITALS: BP 125/55; PULSE 72; RESP 18; TEMP 98.2; O2SAT 96
[2023-07-16] MEDS ORDERED: chlorpheniramine 4mg tablet PO PRN (11:26)
[2023-07-16] MEDS ORDERED: celeCOXIB 100mg capsule PO SCH (20:00)
[2023-07-17] MEDS ORDERED: acetaminophen 325mg tablet PO PRN (08:25)
[2023-08-20] MEDS ORDERED: EPOETIN ALFA 40000 UNIT SQ PRN (08:45)
== END 2023-07-16 12:20 | disposition home or self-care (01) | DRG 470 ==
LOC: PAS IN 05:59 → ORTHO 4S 11:53
PROVIDERS: ADMIT Orthopaedic Surgery; ATTEND Orthopaedic Surgery
PROC: 8E0YXBZ Computer Assisted Procedure of Lower Extremity (ICD-10-PCS; 2023-07-15)
PROC: 8E0Y0CZ Robotic Assisted Procedure of Lower Extremity, Open Approach (ICD-10-PCS; 2023-07-15)
PROC: 0SRC0J9 Replacement of Right Knee Joint with Synthetic Substitute, Cemented, Open Approach (ICD-10-PCS; principal; 2023-07-15 08:19)
DX: M17.11 Unilateral primary osteoarthritis, right knee (principal); M21.061 Valgus deformity, not elsewhere classified, right knee; G47.30 Sleep apnea, unspecified; E03.9 Hypothyroidism, unspecified; K21.9 Gastro-esophageal reflux disease without esophagitis; I12.9 Hypertensive chronic kidney disease with stage 1 through stage 4 chronic kidney disease, or unspecified chronic kidney disease; G62.9 Polyneuropathy, unspecified; M51.37 Other intervertebral disc degeneration, lumbosacral region; M19.072 Primary osteoarthritis, left ankle and foot; M19.071 Primary osteoarthritis, right ankle and foot; M06.9 Rheumatoid arthritis, unspecified; M48.061 Spinal stenosis, lumbar region without neurogenic claudication; N18.30 Chronic kidney disease, stage 3 unspecified; G89.29 Other chronic pain; Z96.612 Presence of left artificial shoulder joint; Z96.611 Presence of right artificial shoulder joint; Z96.642 Presence of left artificial hip joint; Z87.891 Personal history of nicotine dependence; Z90.710 Acquired absence of both cervix and uterus; Z88.2 Allergy status to sulfonamides; Z82.49 Family history of ischemic heart disease and other diseases of the circulatory system
CPT/HCPCS: 36415; 80047; 80051; 80053; 82948; 85025; 87081; 97116; 97161; 97530; A4215; A7000; C1713; C1776; G0378; J0690; J0735; J2250; J2704; J2795; J3010; J3370; J3480; J3490; J7120

== ENCOUNTER 2023-11-18 13:41 | Emergency (ER) | payer MEDICARE ==
[~2023-11-18] VITALS: Ht 147.3 cm; Wt 51.5 kg
[~2023-11-18 13:41] MED LIST changes: +CLIN150C2 PO; +DAPA10TA PO; +GLUC-200 PO; +HYDR200T73 PO
[2023-11-18 13:53] VITALS: BP 150/67; PULSE 80; RESP 18; TEMP 97.6; O2SAT 96
== END 2023-11-18 14:42 | disposition left against medical advice (07) ==
LOC: ER 13:41
DX: I10 Essential (primary) hypertension (principal); Z88.2 Allergy status to sulfonamides; Z91.048 Other nonmedicinal substance allergy status; Z53.21 Procedure and treatment not carried out due to patient leaving prior to being seen by health care provider

== ENCOUNTER 2025-02-04 08:04 | Day surgery (SDC) | payer MEDICARE ==
[~2025-02-04] VITALS: Ht 147.3 cm; Wt 51.1 kg
[2025-02-04] VITALS (11 sets, daily range): BP systolic 131–156; BP diastolic 45–76; PULSE 72–97; RESP 12–18; TEMP 97.8; O2SAT 94–99
[~2025-02-04 08:04] MED LIST changes: -CHLO4TAB36 PO; -CLIN150C2 PO; +CRAN300T PO; -CRAN450T4 PO; +ETAN50PE3 SQ; +FAMO10TA41 PO; +GLUC-178 PO; -GLUC-193 PO; -GLUC-200 PO; +LOSA100T58 PO; -LOSA50TA64 PO; -REM100I IV; +ringers solution, lacted 1,000 ML IV SCH; +simethicone 40mg/0.6ml oral drops 15ml PO ONE
--- NOTE | 2025-02-04 09:05 | ELECTROCARDIOGRAPH REPORT ---
[facility] Test Date: 2025-02-04 Test Time: 09:01:57 Pat Name: EFRAIN PIKE Department[id number] Room: Gender: F Superintendent Of Generation: YAYO : 1945 Requested By: STEPHANIE GARDNER Order Number: [id number] Reading MD: Dr. Jenny Webster Measurements Intervals [place] Rate: 69 P: 47 AR: 205 QRS: 60 QRSD: 107 T: 62 QT: 412 QTc: 442 Interpretive Statements Sinus rhythm Probable left atrial enlargement Minimal ST elevation, inferior leads Electronically Signed On 02-08-2025 7:07:[address] Jenny Webster Please click the below link to view image of tracing.
[2025-02-04] MEDS ORDERED: MIDAZolam 1 MG/ML 5ML VIAL ONE (09:54)
[2025-02-04] MEDS ORDERED: morphine 10mg/ml inj. ONE (09:55)
[2025-02-04] MEDS ORDERED: propofol inj 20 ML IV ONE (09:55)
[2025-02-04] MEDS ORDERED: ePHEDrine 50MG/ML INJ. ONE ×2 (10:00→10:17)
--- NOTE | 2025-02-08 07:11 | PATHOLOGY REPORT ---
[facility] [address] [place] [address] SURGICAL PATHOLOGY REPORT CaseNumber: [id number] Surgeon:Rashmi Smith M.D. CLINICAL INFORMATION CLINICAL INFORMATION: Chronic diarrhea. DIAGNOSIS DIAGNOSIS: COLON, RANDOM BIOPSIES X 3 - OCCASIONAL SMALL BENIGN LYMPHOID AGGREGATES - NO SIGNIFICANT INFLAMMATION OR LYMPHOCYTIC COLITIS - NO INCREASED SUBMUCOSAL COLLAGEN DEPOSITION - NO INFECTIOUS ELEMENTS ARE IDENTIFIED - NO DYSPLASTIC OR NEOPLASTIC FEATURES MICROSCOPIC DESCRIPTION MICROSCOPIC DESCRIPTION: Reviewed is a single H&E-stained slide showing sections on levels of three fragments of colonic mucosa. There are occasional small benign lymphoid aggregates. However, there is no significant inflammation or features of lymphocytic colitis. There is no increased submucosal collagen deposition. No infectious elements are identified. No features of melanosis coli are identified. There are no dysplastic or neoplastic features. GROSS DESCRIPTION GROSS DESCRIPTION: Received in a container of formalin labeled with the patient's name, number, and "random colon BX" are two pieces of jeong tissue both 0.3 cm. The specimen is entirely submitted as A1. The time at which the specimen was removed was 1021. The time at which the specimen was placed in formalin was 1022. Electronically signed by: Fox Acosta M.D. 02/07/2025 9:13:00 AM
== END 2025-02-04 12:17 | disposition home or self-care (01) ==
LOC: GI LAB 08:04
PROVIDERS: ATTEND Internal Medicine Gastroenterology
DX: K52.9 Noninfective gastroenteritis and colitis, unspecified (principal); K57.30 Diverticulosis of large intestine without perforation or abscess without bleeding; K64.8 Other hemorrhoids; I12.9 Hypertensive chronic kidney disease with stage 1 through stage 4 chronic kidney disease, or unspecified chronic kidney disease; N18.30 Chronic kidney disease, stage 3 unspecified; E03.9 Hypothyroidism, unspecified; K21.9 Gastro-esophageal reflux disease without esophagitis; G47.33 Obstructive sleep apnea (adult) (pediatric); Z79.890 Hormone replacement therapy; Z79.899 Other long term (current) drug therapy; Z96.611 Presence of right artificial shoulder joint; Z96.612 Presence of left artificial shoulder joint; Z96.653 Presence of artificial knee joint, bilateral; Z98.41 Cataract extraction status, right eye; Z98.42 Cataract extraction status, left eye; Z98.890 Other specified postprocedural states; Z88.2 Allergy status to sulfonamides; Z88.8 Allergy status to other drugs, medicaments and biological substances
CPT/HCPCS: 45380; 93005; A4618; A4620; A6402; A7000; J2250; J2270; J2704; J3490; J7120; Z7512; Z7610; 88305; A6449; J2274

== ENCOUNTER 2025-02-08 08:07 | Day surgery (SDC) | payer MEDICARE ==
[2025-02-08] VITALS (9 sets, daily range): BP systolic 106–175; BP diastolic 69–93; PULSE 65–79; RESP 16–17; TEMP 97.2; O2SAT 68–98
[~2025-02-08] VITALS: Ht 147.3 cm; Wt 50.3 kg
[~2025-02-08 08:07] MED LIST changes: +LIDOcaine 2% Viscous 15ml cup MM ONE; -simethicone 40mg/0.6ml oral drops 15ml PO ONE
[2025-02-08] MEDS ORDERED: fentaNYL/PF 50MCG/1 ML 2ML syringe ONE (09:10)
[2025-02-08] MEDS ORDERED: midazolam 1 mg/ML 2ml injection ONE (09:10)
[2025-02-08] MEDS ORDERED: LIDOcaine 2% (20mg/ml) 5ml vial ONE (09:11)
[2025-02-08] MEDS ORDERED: propofol 10mg/ml 20ml vial IV ONE (09:18)
[2025-02-08] MEDS ORDERED: ondansetron/PF 4mg/2ml inj ONE (09:32)
== END 2025-02-08 10:43 | disposition home or self-care (01) ==
LOC: GI LAB 08:07
PROVIDERS: ATTEND Internal Medicine Gastroenterology
DX: R10.33 Periumbilical pain (principal); K30 Functional dyspepsia; K21.00 Gastro-esophageal reflux disease with esophagitis, without bleeding; K29.80 Duodenitis without bleeding; K31.89 Other diseases of stomach and duodenum; K25.9 Gastric ulcer, unspecified as acute or chronic, without hemorrhage or perforation; I12.9 Hypertensive chronic kidney disease with stage 1 through stage 4 chronic kidney disease, or unspecified chronic kidney disease; N18.30 Chronic kidney disease, stage 3 unspecified; E03.9 Hypothyroidism, unspecified; G47.33 Obstructive sleep apnea (adult) (pediatric); Z87.891 Personal history of nicotine dependence; Z79.899 Other long term (current) drug therapy; Z96.611 Presence of right artificial shoulder joint; Z96.612 Presence of left artificial shoulder joint; Z96.651 Presence of right artificial knee joint; Z98.41 Cataract extraction status, right eye; Z98.42 Cataract extraction status, left eye; Z98.890 Other specified postprocedural states; Z88.2 Allergy status to sulfonamides; Z88.6 Allergy status to analgesic agent; Z88.8 Allergy status to other drugs, medicaments and biological substances
CPT/HCPCS: 43239; A4618; A4620; J2003; J2250; J2405; J2704; J3010; J7120; Z7512; Z7610

== ENCOUNTER 2025-04-20 12:28 | Emergency (ER) | payer MEDICARE ==
[~2025-04-20] VITALS: Ht 147.3 cm; Wt 57.8 kg
[~2025-04-20 12:28] MED LIST changes: -ACET-1025 PO; +CEFD300C3 PO; -CRAN300T PO; -DAPA10TA PO; -HYDR200T73 PO; +LACT1CAP26 PO; -LIDOcaine 2% Viscous 15ml cup MM ONE; -LOSA100T58 PO; +METO-395 PO; -PSYL0.4C2 PO; -UBID100C16 PO; +UBID100C51 PO; -ringers solution, lacted 1,000 ML IV SCH
--- NOTE | 2025-04-20 13:30 | ELECTROCARDIOGRAPH REPORT ---
[facility] Test Date: 2025-04-20 Test Time: 13:29:50 Pat Name: EFRAIN PIKE Department: [facility]- Patient ID: [id number] Room: Gender: F Electrical Drafter: : 1945 Requested By: JAN ORELLANA Order Number: [id number] Reading MD: Dr. Flynn Obando Measurements Intervals [place] Rate: 69 P: 34 AK: 169 QRS: 75 QRSD: 96 T: 37 QT: 393 QTc: 421 Interpretive Statements Sinus rhythm Ventricular premature complex Low voltage, precordial leads Probable anteroseptal infarct, old Electronically Signed On 04-21-2025 21:13:[address] Flynn Obando Please click the below link to view image of tracing.
[2025-04-20 13:43] LABS: MEAN PLATELET VOLUME 6.6 FL (7.4-10.4); RED CELL DISTRIBUTION WIDTH 20.1 % (11.5-14.5)
[2025-04-20 13:57] LABS: CREATININE 2.31 MG/DL (0.40-0.90); PRO BRAIN NATRIURETIC PEPTIDE 2237 PG/ML (0-450); TOTAL CARBON DIOXIDE 24.0 MMOL/L (24-32); eCRCL 13 ML/MIN; eGFR 20 ML/MIN
--- NOTE | 2025-04-20 14:15 | RADIOLOGY REPORT ---
CHEST RADIOGRAPH INDICATION: CP TECHNIQUE: Single frontal view of the chest was obtained COMPARISON: CHEST,TWO VIEWS on DOS: 07/04/22 FINDINGS: Lines and Tubes: None Lungs: Clear Pleura: Mild blunting left costophrenic angle. Small left pleural effusion. No pneumothorax. Cardiomediastinal contours: Mild cardiomegaly. Bones: Unremarkable IMPRESSION: 1. Mild cardiomegaly. 2. Small left pleural effusion.
--- NOTE | 2025-04-20 14:35 | Physician Documentation ---
History of Present Illness ~ General Chief Complaint: Extremity Swelling Stated Complaint: LOWER EXTREMITY SWELLING Time Seen by MD: 14:07 OK to notify your PCP?: Yes Primary Medical Doctor: Malissa Hughes MD Source: patient Mode of Arrival: POV, Ambulatory Exam Limitations: no limitations History of Present Illness Initial Comments This is a 79-year-old female who comes in complaining of edema of the bilateral lower extremities. She says she has been swollen since yesterday. She has a history of chronic kidney disease. She denies cardiac history. She denies chest pain, dyspnea on exertion or orthopnea. She says she has never had edema like this in the past. She denies discoloration of the legs. She is not complaining of pain. Medication Reconciliation Allergies: Coded Allergies: GAMAL Inhibitors (Verified Allergy, Unknown, 04/20/25) NSAIDS (Non-Steroidal Anti-Inflamma (Verified Allergy, Unknown, 04/20/25) acetaminophen (Verified Allergy, Unknown, 04/20/25) gabapentin (Verified Allergy, Unknown, 04/20/25) oxycodone (Verified Allergy, Unknown, 04/20/25) Sulfa (Sulfonamide Antibiotics) (Verified Adverse Reaction, Mild, GI UPSET, 04/20/25) lactose (Verified Adverse Reaction, Unknown, 08/07/21) tramadol (Verified Adverse Reaction, Unknown, CRAZY, 05/25/24) Uncoded Allergies: SEASONAL POLLEN (Allergy, Unknown, 10/18/23) Scheduled Amlodipine Besylate (Amlodipine Besylate), 1 TAB PO DAILY, (Reported) Biotin (Biotin), 1 TAB PO DAILY, (Reported) Calcium Combo No.2/Vitamin D3 (Citracal + D Er Tablet), 2 EACH PO DAILY, (Reported) Cefdinir* (Cefdinir*), 1 CAP PO Q12H Cholecalciferol (Vitamin D), 1 TAB PO DAILY, (Reported) Etanercept (Enbrel), 50 MG SQ Q7D, (Reported) Flaxseed Oil (Flaxseed), 1,400 MG PO DAILY, (Reported) Glucosamine/D3/Boswellia Tabitha (Glucosamine Complex Tablet), 2 EACH PO DAILY, (Reported) Hydrochlorothiazide (Hydrochlorothiazide), 1 TAB PO DAILY, (Reported) Lactobacillus Acidophilus (Probiotic), 1 CAPSULE PO DAILY, (Reported) Lactobacillus Rhamnosus (Culturelle), 1 CAP PO DAILY Leflunomide (Leflunomide), 0.5 TAB PO DAILY, (Reported) Metoprolol Succinate (Metoprolol Succinate), 25 MG PO DAILY Kel[place]-3 Fatty Acids/Fish Oil (Fish Oil 1,000 Mg Softgel), 1,200 MG PO DAILY, (Reported) Red Yeast Rice (Red Yeast Rice), 600 MG PO DAILY, (Reported) Ubidecarenone (Coq-10), 300 MG PO DAILY, (Reported) levothyroxine sodium* (Synthroid*), 25 MCG PO QAM, (Reported) Scheduled PRN Calcium Carbonate (Tums), 2 TAB PO DAILY PRN for ACID REFLUX, (Reported) Epoetin Edward (Procrit), 40,000 UNITS IM Q6WKS PRN for HGB <10, (Reported) Famotidine (Pepcid Ac), 10 MG PO DAILY PRN for ACID REFLUX, (Reported) Discontinued Medications Acetaminophen (Tylenol Extra Strength), 2 TAB PO BID PRN for pain or fever, (Reported) Discontinued Reason: ADR (Adverse Drug Rxn) Cranberry Extract (Cranberry), 30 MG PO DAILY, (Reported) Dapagliflozin Propanediol (Farxiga), 1 TAB PO DAILY, (Reported) Losartan Potassium (Losartan Potassium), 1 TAB PO DAILY, (Reported) Metronidazole* (Flagyl*), 1 TAB PO Q8H Discontinued Reason: Auto Discontinued Psyllium Husk (Metamucil), 5 CAP PO DAILY, (Reported) Past Medical History Past Medical History: Renal Disease Patient History: Patient reports no known family medical history. Physical Exam Physical Exam Vital Signs: Temperature: 97.8, Heart Rate: 69, Respiratory Rate: 18, BP: 156/75, Pulse Oximetry: 98, Weight: 57.800 Oxygen Flow Rate: 0 Pulse Oximetry Reflects: adequate oxygenation General Appearance: alert, WD/WN, no apparent distress Respiratory Lungs are clear to auscultation all zheng. No crackles, rales or wheezes. No accessory muscle use or retractions Cardiovascular No rubs, gallops or murmurs. There is 1+ pitting edema of the bilateral extremities from the top of the feet in the knees bilaterally. Bilateral dorsalis pedis pulses 2+ and equal. No calf tenderness or palpable cords. Negative Homans sign. Extremities See cardiac exam Progress Results/Orders Reviewed/noted all lab results: Yes Results/Orders Orders - FOX MARTINEZ Vl Venous (04/20/25 14:30) Page Hospitalist (04/20/25 16:14) Echocardiogram (04/20/25 16:21) Completed Orders - FOX MARTINEZ Vl Venous (04/20/25 14:30) Furosemide Inj (Lasix Inj) (04/20/25 14:30) Medications Received in ER Medications (Trade) Dose Ordered Sig/Hima Route PRN Reason Start Time Stop Time Status Last Admin Dose Admin (Lasix inj) 20 mg ONCE ONCE IV 04/20/25 14:30 04/20/25 14:32 DC 04/20/25 14:37 20 MG Vital Signs 04/20/25 04/20/25 04/20/25 04/20/25 12:49 13:45 14:18 14:19 Temp 97.4 97.8 Pulse 82 69 Resp 18 18 B/P (MAP) 146/77 156/75 (102) Pulse Ox 96 94 98 O2 Delivery Room Air* O2 Flow Rate 0 0 FiO2 21 04/20/25 15:58 Pulse 78 Resp 16 B/P (MAP) 143/76 (98) Pulse Ox 98 O2 Flow Rate 0 Laboratory Tests Test 04/20/25 13:23 White Blood Count 4.6 Red Blood Count 3.41 L Hemoglobin 9.9 L Hematocrit 32.3 L Mean Corpuscular Volume 94.6 Mean Corpuscular Hemoglobin 29.1 Mean Corpuscular Hemoglobin Concent 30.8 L Red Cell Distribution Width 20.1 H Platelet Count 318 Mean Platelet Volume 6.6 L Neutrophils (%) (Auto) 77.5 H Lymphocytes (%) (Auto) 8.5 L Monocytes (%) (Auto) 13.5 H Eosinophils (%) (Auto) 0.3 Basophils (%) (Auto) 0.2 Neutrophils # (Auto) 3.5 Lymphocytes # (Auto) 0.4 L Monocytes # (Auto) 0.6 Eosinophils # (Auto) 0.0 Basophils # (Auto) 0.0 CBC Comment Sodium Level 135 Potassium Level 4.9 Chloride Level 105 Carbon Dioxide Level 24.0 Anion Gap 6 L Blood Urea Nitrogen 32 H Creatinine 2.31 H Estimated GFR/1.73 m2 20 BUN/Creatinine Ratio 13.9 Glucose Level 117 H Calcium Level 8.3 L Troponin I High Sensitivity 22 Pro-B-Type Natriuretic Peptide 2237 H Albumin 2.6 L Chemistry Comments EKG/XRAY/CT/US/VASC/MRI EKG : Intepreting Monitor?: No Additional Comment Sinus rhythm rate of 69. Ventricular premature complex. Low voltage precordial leads. 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 Pulmonary vascular congestion. Small left pleural effusion. No bony abnormality Medical Decision Making Additional information obtaine: old records Findings The patient's chest x-ray showed mild cardiomegaly and today her pro BNP was 2237. This is increase from 1196 on 04/09/2025. The patient has renal functions are actually slightly improved from her last visit. My concern is this may represent new or worsening CHF so I spoke with the hospitalist Dr. Tiffanie brock who stated the patient had an echocardiogram about 11 days ago while she was admitted here that was not very concerning. I did give the patient a dose of Lasix at 20 mg IV and she is urinating. I discussed the case with the hospitalist and with the patient at length and the decision was made to discharge the patient home on p.o. Lasix with a close follow up with the PCP both Dr. Webster and Dr. Amador. I told her to return if her symptoms worsen which would include increase the swelling of the bilateral lower extremities, dyspnea on exertion and orthopnea or chest pain. Differential Diagnosis Peripheral edema. DVT. Renal failure. Congestive heart failure Departure Disposition: HOME / SELF CARE / HOMELESS Impression: Primary Impression: Peripheral edema Condition: Stable Discharge Instructions: Peripheral Edema Additional Instructions: Take the medications as prescribed, decrease your sodium intake and elevate your legs frequently. Follow up with the your primary care physician's hopefully earlier this week or at your pre-existing appointment next week. Return any point for increased swelling, shortness of breath or any concerns. Referrals: NO PRIMARY CARE PROVIDER (PCP) Prescriptions Potassium Chloride* (K-Dur*) 20 Meq Tab.prt.sr 1 TAB PO DAILY for 30 Days, #30 TAB Prov: FOX MARTINEZ 04/20/25 Furosemide* (Lasix*) 20 Mg Tablet 1 TAB PO DAILY for 30 Days, #30 TAB Prov: FOX MARTINEZ 04/20/25 Signature Scribe Signature: No scribe Attestation: The note accurately reflects work and decisions made by me.Fox CISNEROS 04/20/25 16:38 FOX MARTINEZ Apr 20, 2025 14:35
[2025-04-20] MEDS: furosemide 10 MG/1 ML 10ml inj IV ONE (14:37)
--- NOTE | 2025-04-20 16:03 | VASCULAR REPORT ---
PROCEDURE: [facility] Exam Date: 04/20/2025 03:11 PM History: swelling Findings: TECHNIQUE: Duplex Doppler evaluation of the superficial veins of the right and left lower extremities was performed including color Doppler and spectral/pulsed waveform analysis. FINDINGS: No DVT
[2025-04-20] MEDS ORDERED: FURO-150 PO (16:38)
[2025-04-20] MEDS ORDERED: POTA-207 PO (16:38)
[2025-04-20 17:03] VITALS: TEMP 98.3
[2025-04-20 17:39] VITALS: BP 139/72; PULSE 77; RESP 16; O2SAT 98
== END 2025-04-20 17:44 | disposition home or self-care (01) ==
LOC: ER 12:28
DX: R60.0 Localized edema (principal); N18.9 Chronic kidney disease, unspecified; Z88.2 Allergy status to sulfonamides; Z88.5 Allergy status to narcotic agent; Z88.6 Allergy status to analgesic agent; Z88.8 Allergy status to other drugs, medicaments and biological substances; Z79.899 Other long term (current) drug therapy
CPT/HCPCS: 36415; 71045; 80048; 83880; 84484; 85025; 93005; 93970; 96374; 99285; J1938